=== PATIENT | female | born 1965 | race African-American/Black ===

== ENCOUNTER 2018-01-30 23:52 | Emergency (ER) | payer BC, MEDICAID ==
[~2018-01-30] VITALS: Ht 154.9 cm; Wt 76.2 kg
[~2018-01-30 23:52] MED LIST: CIPRO500 MG PO; GUAIFENESIN1200 MG PO; NAPROXEN500 M2 ORAL; NEXAFED30 MG ORAL; NKM; NORCO 5-325 TA1 EACH ORAL; PROMETHAZINE-C118 M1 ORAL; TRAMADOL HCL50 MG ORAL
--- NOTE | 2018-01-31 00:06 | Emergency Room Report ---
History of Present Illness General Chief Complaint: Abdominal Pain Source: Patient Present Illness HPI This is a 52-year-old female with no past medical history. She presents with chief complaint of epigastric abdominal pain been on and off all day today. Worse with eating. No radiation. Nausea but no vomiting. No diarrhea. Pain is 8 out of 10. Sharp in nature. No diaphoresis. No chest pain. She said she had back pain before but for some having abdominal pain. No surgery. Allergies: Coded Allergies: No Known Allergies (Unverified , 08/29/14) Patient History Past Medical History: see triage record, old chart reviewed Past Surgical History: none Pertinent Family History: none Social History: Denies: smoking Last Menstrual Period: 01/27/18 Now: No : 3 Para: 3 Immunizations: other Reviewed Nursing Documentation: PMH: Agreed; PSxH: Agreed Nursing Documentation-PMH Past Medical History: No Stated History Hx Seizures: Yes Review of Systems Eye: Denies: eye pain, blurred vision ENT: Denies: ear pain, nose congestion, throat swelling Respiratory: Denies: cough, shortness of breath Cardiovascular: Denies: chest pain, palpitations Gastrointestinal: Reports: abdominal pain, nausea; Denies: diarrhea, vomiting Musculoskeletal: Denies: back pain, joint pain Skin: Denies: rash Neurological: Denies: headache, numbness Endocrine: Denies: increased thirst, increased urine Hematologic/Lymphatic: Denies: easy bruising All Other Systems: negative except mentioned in HPI Physical Exam Vital Signs Date Time Temp Pulse Resp B/P (MAP) Pulse Ox O2 Delivery O2 Flow Rate FiO2 01/30/18 23:57 98.0 75 14 186/90 99 Room Air 98.1 vitals with high blood pressure Sp02 EP Interpretation: reviewed, normal General Appearance: well appearing, no apparent distress, alert Head: normocephalic, atraumatic Eyes: bilateral eye PERRL, bilateral eye EOMI ENT: hearing grossly normal, normal pharynx Neck: full range of motion, supple, no meningismus Respiratory: chest non-tender, lungs clear, normal breath sounds Cardiovascular #1: regular rate, rhythm, no murmur Gastrointestinal: normal bowel sounds, no mass, no organomegaly, no bruit, non- distended, tenderness - epigastric and right upper quadrant Musculoskeletal: back normal, gait/station normal, normal range of motion Psychiatric: mood/affect normal Skin: warm/dry Medical Decision Making Diagnostic Impression: Primary Impression: Choledocholithiasis with obstruction Qualified Codes: K80.51 - Calculus of bile duct without cholangitis or cholecystitis with obstruction Additional Impression: Pancreatitis, acute Qualified Codes: K85.10 - Biliary acute pancreatitis without necrosis or infection ER Course Patient presents with upper quadrant abdominal pain. She arty had a cholecystectomy but labs show obstruction probably from a retained stone. She also has evidence of pancreatitis. Pain is better controlled. No evidence of perforation or acute abdomen. Patient will be transferred to [facility] based on insurance. Laboratory Tests Test 01/31/18 00:20 White Blood Count 7.5 K/UL (4.8-10.8) Red Blood Count 4.61 M/UL (4.20-5.40) Hemoglobin 15.1 G/DL (12.0-16.0) Hematocrit 42.0 % (37.0-47.0) Mean Corpuscular Volume 91 FL (80-99) Mean Corpuscular Hemoglobin 32.8 PG (27.0-31.0) H Mean Corpuscular Hemoglobin Concent 36.0 G/DL (32.0-36.0) Red Cell Distribution Width 13.0 % (11.6-14.8) Platelet Count 317 K/UL (150-450) Mean Platelet Volume 6.2 FL (6.5-10.1) L Neutrophils (%) (Auto) 84.6 % (45.0-75.0) H Lymphocytes (%) (Auto) 9.8 % (20.0-45.0) L Monocytes (%) (Auto) 5.1 % (1.0-10.0) Eosinophils (%) (Auto) 0.0 % (0.0-3.0) Basophils (%) (Auto) 0.6 % (0.0-2.0) Urine Color Viv Urine Appearance Clear Urine pH 8 (4.5-8.0) Urine Specific Mcdonald 1.010 (1.005-1.035) Urine Protein Negative (NEGATIVE) Urine Glucose (UA) 2+ (NEGATIVE) H Urine Ketones Negative (NEGATIVE) Urine Occult Blood 1+ (NEGATIVE) H Urine Nitrite Negative (NEGATIVE) Urine Bilirubin Negative (NEGATIVE) Urine Ictotest Negative Urine Urobilinogen Normal MG/DL (0.0-1.0) Urine Leukocyte Esterase Negative (NEGATIVE) Urine RBC 5-10 /HPF (0 - 2) H Urine WBC 0-2 /HPF (0 - 2) Urine Squamous Epithelial Cells Few /LPF (NONE/OCC) Urine Bacteria Few /HPF (NONE) Urine HCG, Qualitative Negative (NEGATIVE) Sodium Level 135 MMOL/L (136-145) L Potassium Level 3.5 MMOL/L (3.5-5.1) Chloride Level 100 MMOL/L (98-107) Carbon Dioxide Level 29 MMOL/L (21-32) Anion Gap 6 mmol/L (5-15) Blood Urea Nitrogen 8 mg/dL (7-18) Creatinine 0.9 MG/DL (0.55-1.30) Estimat Glomerular Filtration Rate > 60 mL/min (>60) Glucose Level 177 MG/DL (74-106) H Calcium Level 9.1 MG/DL (8.5-10.1) Total Bilirubin 2.7 MG/DL (0.2-1.0) H Direct Bilirubin 1.6 MG/DL (0.0-0.3) H Aspartate Amino Transf (AST/SGOT) 802 U/L (15-37) H Alanine Aminotransferase (ALT/SGPT) 746 U/L (12-78) H Alkaline Phosphatase 142 U/L (46-116) H Total Protein 8.1 G/DL (6.4-8.2) Albumin 4.2 G/DL (3.4-5.0) Globulin 3.9 g/dL Albumin/Globulin Ratio 1.1 (1.0-2.7) Lipase 62775 U/L (73-393) H Lab Results Impression labs with elevated liver enzymes, bilirubin and lipase CT/MRI/US Diagnostic Results CT/MRI/US Diagnostic Results : Imaging Test Ordered: CT abdomen and pelvis Impression Read by radiologist. Peripancreatic fat stranding. Status post cholecystectomy. No bowel obstruction. Last Vital Signs Date Time Temp Pulse Resp B/P (MAP) Pulse Ox O2 Delivery O2 Flow Rate FiO2 01/30/18 23:57 98.0 75 14 186/90 99 Room Air 98.1 Status: improved Disposition: ER SHT-TRM HOSP Condition: Stable POPPY HAINES M.D. Jan 31, 2018 00:06
[2018-01-31 00:15] VITALS: BP 161/81
[2018-01-31] MEDS ORDERED: Morphine Sulfate 4mg/ml Inj IVP ONE (00:15)
[2018-01-31 00:33] LABS: APPEARANCE,URINE CLEAR; BILIRUBIN, URINE NEGATIVE (NEGATIVE); COLOR,URINE AMBER; GLUCOSE, URINE (UA) 2+ (NEGATIVE); KETONES,URINE NEGATIVE (NEGATIVE); LEUKOCYTE ESTERASE ,URINE NEGATIVE (NEGATIVE); NITRITE,URINE NEGATIVE (NEGATIVE); PH,URINE 8 (4.5-8.0); PROTEIN,URINE NEGATIVE (NEGATIVE); UROBILINOGEN,URINE NORMAL MG/DL (0.0-1.0)
[2018-01-31 00:35] LABS: BASOPHILS % (AUTO) 0.6 % (0.0-2.0); HEMOGLOBIN 15.1 G/DL (12.0-16.0); LYMPHOCYTES % (AUTO) 9.8 % (20.0-45.0); MEAN CORPUSCULAR VOLUME 91 FL (80-99); MONOCYTES % (AUTO) 5.1 % (1.0-10.0); NEUTROPHILS % (AUTO) 84.6 % (45.0-75.0); PLATELET COUNT 317 K/UL (150-450); RED BLOOD COUNT 4.61 M/UL (4.20-5.40); WHITE BLOOD COUNT 7.5 K/UL (4.8-10.8)
[2018-01-31 00:46] LABS: ANION GAP 6 mmol/L (5-15); BLOOD UREA NITROGEN 8 mg/dL (7-18); CALCIUM 9.1 MG/DL (8.5-10.1); CARBON DIOXIDE 29 MMOL/L (21-32); CHLORIDE 100 MMOL/L (98-107); CREATININE 0.9 MG/DL (0.55-1.30); POTASSIUM 3.5 MMOL/L (3.5-5.1); SODIUM 135 MMOL/L (136-145)
[2018-01-31 00:57] LABS: ALANINE AMINOTRANSFERASE 746 U/L (12-78); ALBUMIN 4.2 G/DL (3.4-5.0); ALBUMIN/GLOBULIN RATIO 1.1 (1.0-2.7); ALKALINE PHOSPHATASE 142 U/L (46-116); ASPARTATE AMINO TRANSFERASE 802 U/L (15-37); BILIRUBIN,TOTAL 2.7 MG/DL (0.2-1.0)
[2018-01-31 00:58] LABS: BILIRUBIN,DIRECT 1.6 MG/DL (0.0-0.3)
[2018-01-31 01:30] VITALS: BP 148/70
[2018-01-31 02:40] VITALS: BP 148/76
[2018-01-31] MEDS ORDERED: HYDROmorphone 1mg/ml Carpuject IVP ONE (02:45)
[2018-01-31 05:14] VITALS: BP 167/82
[2018-01-31 05:21] VITALS: BP 167/82
--- NOTE | 2018-01-31 08:59 | Diagnostic Imaging Report ---
Indication: Abdominal pain Technique: CT of the abdomen and pelvis utilizing automated exposure control without intravenous or oral contrast. CT dose: Total DLP 786.34 mGycm; CTDI vol 16.14 mGy Comparison: 03/03/2013 Findings: Please note that evaluation of the abdominal and pelvic viscera is limited without the use of intravenous and oral contrast. Within these limitations: Heart size within normal limits. Patient is status post cholecystectomy. There is moderate distention of both intrahepatic and extra hepatic biliary ducts. This may be partially related to prior cholecystectomy however correlation with laboratory values is recommended to exclude superimpose biliary obstruction. No definite focal hepatic mass lesion is appreciated on this noncontrast exam. Hepatic contour appears smooth. The pancreatic margins are slightly indistinct and there is subtle peripancreatic fat stranding suggestive of acute pancreatitis. Correlation with serum pancreatic enzymes is recommended. Adrenal glands and spleen grossly unremarkable. Kidneys are symmetric in size. There is a low-attenuation lesion in the midpole the right kidney which is too small to fully characterize but possibly represents a simple renal cyst. No evidence of urinary tract stone or hydronephrosis bilaterally. The bladder is decompressed, limiting its evaluation. There is a 4.2 mm cystic lesion in the right ovary. There is no free intraperitoneal air. No evidence of bowel obstruction or definite evidence of inflammatory change in the bowel however evaluation is limited without intravenous and oral contrast. Appendix is normal. There is a small fat-containing umbilical hernia. Some small mesenteric lymph nodes are noted in the upper abdomen, likely reactive in etiology. No bulky/conglomerate lymphadenopathy is appreciated on this noncontrast exam. Aorta appears normal in caliber. No acute osseous abnormality is seen. There are degenerative changes in the lumbar spine. IMPRESSION: Exam without intravenous and oral contrast. Within these limitations: * Findings suggestive of early acute pancreatitis. Correlation with serum pancreatic enzymes recommended. * Moderate biliary ductal dilatation, possibly related to prior cholecystectomy. Correlation with lab values is recommended to exclude a superimposed biliary obstruction. * 4.2 cm right ovarian cyst. Correlation with pelvic ultrasound recommended for further evaluation. Additional findings as above. This corresponds with the statrad preliminary report. The CT scanner at [facility] is accredited by the [employer] and the scans are performed using protocols designed to limit radiation exposure to as low as reasonably achievable to attain images of sufficient resolution adequate for diagnostic evaluation.
== END 2018-01-31 05:24 | disposition short-term general hospital (02) ==
LOC: EMR 01-31 00:05
DX: K80.51 Calculus of bile duct without cholangitis or cholecystitis with obstruction (principal); K85.10 Biliary acute pancreatitis without necrosis or infection; Z90.49 Acquired absence of other specified parts of digestive tract
CPT/HCPCS: 36415; 74176; 80053; 81003; 81025; 82248; 83690; 85025; 96374; 96375; 99285; J1170; J2270; J2405

== ENCOUNTER 2018-08-21 13:05 | Emergency (ER) | payer MEDICAID ==
[~2018-08-21] VITALS: Ht 162.6 cm; Wt 78.9 kg
[2018-08-21 13:09] VITALS: BP 143/90
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
[2018-08-21] MEDS ORDERED: Norco 5mg/325mg tab ORAL ONE (13:45)
[2018-08-21] MEDS ORDERED: IBUPROFEN600 MG ORAL (13:50)
[2018-08-21 13:54] VITALS: BP 143/90
--- NOTE | 2018-08-21 13:56 | Diagnostic Imaging Report ---
Indication: Left clavicle injury Comparison: None Findings: 2 views of the left clavicle obtained. No acute fracture identified. The left clavicle appears intact. Visualized part of the shoulder grossly unremarkable. IMPRESSION: Negative exam
== END 2018-08-21 13:55 | disposition home or self-care (01) ==
LOC: EMR 13:22
DX: S20.212A Contusion of left front wall of thorax, initial encounter (principal); Y04.0XXA Assault by unarmed brawl or fight, initial encounter; Y92.9 Unspecified place or not applicable; Z90.49 Acquired absence of other specified parts of digestive tract
CPT/HCPCS: 99283

== ENCOUNTER 2019-04-01 09:19 | Emergency (ER) | payer MEDICAID ==
[~2019-04-01] VITALS: Ht 162.6 cm; Wt 78.9 kg
[~2019-04-01 09:19] MED LIST changes: +IBUPROFEN600 MG ORAL
[2019-04-01 09:27] VITALS: BP 128/82
[2019-04-01] MEDS: Ketorolac 60mg Inj IM ONE (09:42)
[2019-04-01] MEDS: Cyclobenzaprine 10mg Tab ORAL ONE (09:42)
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
[2019-04-01] MEDS ORDERED: Gadavist 7.5mMol/7.5ml vial IV PRN (11:45)
[2019-04-01 12:30] VITALS: BP 122/78
[2019-04-01] MEDS ORDERED: CYCLOBENZAPRINE10 MG ORAL (14:49)
[2019-04-01] MEDS ORDERED: TRAMADOL HCL50 MG ORAL (14:49)
--- NOTE | 2019-04-01 15:00 | Diagnostic Imaging Report ---
Indication: Cervical spine pain, evaluation of abnormality seen on prior cervical CT scan Technique: Sagittal T1 FLAIR, sagittal T2 FRFSE, sagittal STIR, axial T2 FRFSE, axial 3-D COSMIC ASPIR, pre and postcontrast axial and sagittal T1 fast spin-echo fat-saturated images obtained of the cervical spine Comparison: Cervical CT scan of earlier the same day Findings: Within the C3 vertebral body, there is a lesion which measures 11 mm transverse by 8 mm AP by 9 mm craniocaudad. It is irregular in shape. It demonstrates low signal on the T1-weighted images, high signal on the T2-weighted images, very high signal on the STIR images. It enhances intensely on the postcontrast images. As on the CT scan, does appear to erode slightly into the posterior wall. There is no evidence of extraosseous extension of lesion. Within the C6 vertebral body, there is a central lesion which measures 8 mm AP by 7 mm transverse by 7 mm craniocaudad. This demonstrates slightly high signal on the T1 and slightly higher signal on the T2-weighted images, mixed high and low signal on the STIR images, and enhances slightly on the postcontrast images. On the axial images, there is slight suggestion of vertically oriented trabeculae within the lesion. No other focal or diffuse marrow abnormality demonstrated. The bony alignment is normal. The vertebral body heights are preserved. No significant soft tissue enhancement demonstrated. At C4-5, there is mild to moderate degenerative disc narrowing which is more striking on the prior CT scan. There is moderate bilateral neural foraminal stenosis. At C5-6, there is mild disc narrowing and mild bilateral neural foraminal stenosis. There are posterior disc bulge/osteophyte complex does not significantly narrow the spinal canal. At C6-7, there is mild degenerative disc narrowing and mild left neural foraminal stenosis.. There are left paracentral osteophytes which do not significantly optimize the spinal canal At C7-T1, there are right paracentral osteophytes which do not significantly compromise the spinal canal. The neural foramina are preserved. There is mild right neural foraminal stenosis. The included extra spinal soft tissues are unremarkable. Impression: Irregular 11 x 8 x 9 mm lesion within the C3 vertebral body, corresponding to abnormality described on recent CT scan. Appearance is nonspecific. Possibilities include atypical hemangioma, metastatic neoplasm, plasmacytoma, primary osseous neoplasm. Partially sclerotic margins on CT may indicate a benign process, but not necessarily given the irregular borders and posterior wall erosion. Consider bone scan to assess for metabolic activity and to see if other lesions are present elsewhere. More subtle 8 x 7 x 7 mm lesion within the C6 vertebral body. Appearance likewise nonspecific, differential above, although features are more favorable to this representing an atypical hemangioma. No acute bony trauma Mild degenerative changes, as detailed on a level by level basis above Findings discussed by phone with Dr. Mckoy at the time of interpretation
[2019-04-01 15:11] VITALS: BP 124/80
== END 2019-04-01 15:12 | disposition home or self-care (01) ==
LOC: EDBD 09:19 → EMR 09:40
DX: S16.1XXA Strain of muscle, fascia and tendon at neck level, initial encounter (principal); S13.4XXA Sprain of ligaments of cervical spine, initial encounter; V43.52XA Car driver injured in collision with other type car in traffic accident, initial encounter; Y92.414 Local residential or business street as the place of occurrence of the external cause; D16.4 Benign neoplasm of bones of skull and face
CPT/HCPCS: 70450; 72125; 72142; 96372; 99284; A9585